=== PATIENT | female | born 1980 | race Caucasian/White ===

== ENCOUNTER → 2019-01-19 | Outpatient (CLI) | payer MEDICAID | LOC: FIMAGING 11:52 | PROVIDERS: ATTEND Family Medicine | DX: O09.522 Supervision of elderly multigravida, second trimester (principal); O26.892 Other specified pregnancy related conditions, second trimester; Z3A.21 21 weeks gestation of pregnancy ==

== ENCOUNTER → 2019-03-26 | Outpatient (CLI) | payer MEDICAID | LOC: FIMAGING 10:02 | PROVIDERS: ATTEND Obstetrics & Gynecology | DX: O09.523 Supervision of elderly multigravida, third trimester (principal); O36.5930 Maternal care for other known or suspected poor fetal growth, third trimester, not applicable or unspecified; O36.5130 Maternal care for known or suspected placental insufficiency, third trimester, not applicable or unspecified; Z3A.31 31 weeks gestation of pregnancy ==

== ENCOUNTER → 2019-04-09 | Outpatient (CLI) | payer MEDICAID | LOC: FIMAGING 14:53 | PROVIDERS: ATTEND Obstetrics & Gynecology | DX: O09.523 Supervision of elderly multigravida, third trimester (principal); Z3A.33 33 weeks gestation of pregnancy; O36.5930 Maternal care for other known or suspected poor fetal growth, third trimester, not applicable or unspecified ==

== ENCOUNTER → 2019-04-14 | Outpatient (CLI) | payer MEDICAID | LOC: FIMAGING 08:59 | PROVIDERS: ATTEND Obstetrics & Gynecology | DX: O09.513 Supervision of elderly primigravida, third trimester (principal); O36.5930 Maternal care for other known or suspected poor fetal growth, third trimester, not applicable or unspecified; Z3A.34 34 weeks gestation of pregnancy ==

== ENCOUNTER → 2019-04-23 | Outpatient (CLI) | payer MEDICAID | LOC: FIMAGING 09:18 ==

== ENCOUNTER → 2019-04-30 | Outpatient (CLI) | payer MEDICAID | LOC: FIMAGING 10:05 ==

== ENCOUNTER → 2019-05-07 | Outpatient (CLI) | payer MEDICAID | LOC: FIMAGING 08:51 ==